=== PATIENT | female | born 1990 | race Two or more races ===

== ENCOUNTER 2018-07-01 07:59 | Emergency (ER) | payer SELFPAY ==
[~2018-07-01] VITALS: Ht 149.9 cm; Wt 72.6 kg
[2018-07-01] MEDS ORDERED: ASPirin 81 mg TAB PO ONE (09:00)
[2018-07-01 09:18] LABS: Basophils # (auto) 0 uL; Basophils % (auto) 0.4 % (0.0-2.0); Eosinophils # (auto) 0 uL; Eosinophils % (auto) 1.1 % (0.0-7.0); Hemoglobin 13.5 g/dL (12.2-16.2); Lymphocytes % (auto) 31.6 % (10.0-50.0); Mean Corpuscular Hemoglobin 29.1 pg (28.0-32.0); Mean Corpuscular Hgb Conc. 32.9 g/dL (32.0-36.0); Mean Corpuscular Volume 88.4 fL (80.0-100.0); Monocytes # (auto) 0.3 uL; Monocytes % (auto) 9.7 % (0.0-12.0); Neutrophils # (auto) 1.8 uL; Neutrophils % (auto) 57.2 % (37.0-80.0); Nucleated Red Blood Cells % 0.1 %; Platelet Count (auto) 163 10^3/uL (140-450); Red Blood Cells 4.63 10^6/uL (4.0-5.20); Red Cell Distribution Width 14.2 % (11.8-14.3); White Blood Cell 3.2 10^3/uL (4.4-10.8)
[2018-07-01 09:28] LABS: Albumin 4.1 g/dL (3.4-5.0); Anion Gap 10 (5-15); BUN/Creatinine Ratio 25.8; Blood Urea Nitrogen 17 mg/dL (7-18); Calcium 8.7 mg/dL (8.5-10.1); Carbon Dioxide 23 mmol/L (21-32); Chloride 109 mmol/L (98-107); GFR African American 135 mL/min; GFR Non-African American 112 mL/min; Glucose 102 mg/dL (74-106); Potassium 4.3 mmol/L (3.5-5.1); Sodium 142 mmol/L (136-145)
[2018-07-01 09:34] LABS: Alanine Aminotransferase 28 U/L (13-56); Alkaline Phosphatase 66 U/L (45-117); Aspartate Aminotransferase 12 U/L (15-37); Bilirubin, Total 0.5 mg/dL (0.2-1.0); Total Protein 7.8 g/dL (6.4-8.2)
[2018-07-01 09:38] LABS: Urine Bacteria NONE SEEN /hpf (None Seen); Urine Blood 1+ /uL (Negative); Urine Mucus FEW (None Seen); Urine Specific Gravity 1.029 (1.001-1.035); Urine WBC 1 /hpf (0 - 5)
[2018-07-01] MEDS: cefTRIAXone SOD 1,000 MG VL IM ONE ×2 (10:30→10:57)
[2018-07-01] MEDS ORDERED: LIDOCAINE 1% HCL (LOCAL ANESTH.) INJ 20ML MDV ONE (10:54)
[2018-07-01] MEDS ORDERED: LIDOCAINE 1% HCL (LOCAL ANESTH.) INJ 20ML MDV IJ ONE (11:00)
[2018-07-01 11:05] VITALS: BP 113/69
[2018-07-01] MEDS ORDERED: IBUP100S11 PO (11:11)
[2018-07-01] MEDS ORDERED: NITR50CA PO (11:11)
== END 2018-07-01 11:31 | disposition home or self-care (01) ==
LOC: ER 07:59
DX: R07.89 Other chest pain (principal); N39.0 Urinary tract infection, site not specified; Z88.0 Allergy status to penicillin
CPT/HCPCS: 36415; 71046; 80053; 81001; 84484; 85025; 93005; 99284; J0696; J2001